=== PATIENT | male | born 1980 | race African-American/Black ===

== ENCOUNTER 2020-01-09 12:49 | Emergency (ER) | payer OTHER ==
[~2020-01-09] VITALS: Ht 195.6 cm; Wt 84.4 kg
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
[2020-01-09 13:23] VITALS: BP 131/89
[2020-01-09] MEDS ORDERED: Methocarbamol 500mg tab ORAL ONE (13:45)
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
[2020-01-09] MEDS ORDERED: ROBAXIN-750750 MG PO (14:31)
[2020-01-09] MEDS ORDERED: LIDODERM700 M1 TOPIC (14:31)
[2020-01-09] MEDS ORDERED: TYLENOL EXTRA500 MG ORAL (14:31)
[2020-01-09 15:09] VITALS: BP 129/87
== END 2020-01-09 15:13 | disposition home or self-care (01) ==
LOC: EMR 13:06
DX: R51 Headache (principal); M54.5 Low back pain; T14.8XXA Other injury of unspecified body region, initial encounter; V43.52XA Car driver injured in collision with other type car in traffic accident, initial encounter; Y92.410 Unspecified street and highway as the place of occurrence of the external cause
CPT/HCPCS: 99282